=== PATIENT | male | born 1970 | race Caucasian/White ===

== ENCOUNTER 2018-07-08 04:09 | Inpatient (IN) | payer OTHER ==
[~2018-07-08] VITALS: Ht 167.6 cm; Wt 88.9 kg
[~2018-07-08 04:09] MED LIST: LISI10TA2 PO; OMEP40CA3 PO
[2018-07-08 06:30] VITALS: BP 140/90; PULSE 59; RESP 18
[2018-07-08 06:34] VITALS: Ht 167.6 cm; Wt 88.9 kg
[2018-07-08] MEDS ORDERED: LOSA25TA12 PO (07:00)
[2018-07-08] MEDS ORDERED: OMEG-135 PO (07:00)
[2018-07-08] MEDS ORDERED: ATOR10TA65 PO (07:00)
[2018-07-08] MEDS ORDERED: ASPI-903 PO (07:00)
[2018-07-08] MEDS ORDERED: PANT40TA4 PO (07:00)
[2018-07-08] MEDS ORDERED: ONDANSETRON 4 MG INJ IV PRN (07:30)
[2018-07-08] MEDS ORDERED: morphine 2 MG INJ IV PRN (07:30)
[2018-07-08] MEDS ORDERED: PANTOPRAZOLE 40 MG INJ IV SCH (07:30)
[2018-07-08 07:38] VITALS: BP 129/77; PULSE 78; RESP 18
[2018-07-08] MEDS: DEXTROSE 5%-0.45% NACL 1,000 ML IV SCH ×2 (07:57→18:51)
[2018-07-08] MEDS: CEFTRIAXONE 1 GM/50 ML (PMX) 50 ML IVPB SCH (08:10)
[2018-07-08] MEDS: FAMOTIDINE 20 MG INJ IV SCH ×2 (08:12→21:39)
[2018-07-08 11:11] VITALS: BP 131/82; PULSE 61; RESP 18
--- NOTE | 2018-07-08 12:54 | HP ---
Date/Time of Note Date/Time of Note DATE: 07/08/18 TIME: 12:29 Assessment/Plan VTE Prophylaxis SCD applied (from Nsg): Yes Pharmacological prophylaxis: NA/contraindicated Pharm contraindication: low risk/ambulating, surgical contra Lines/Catheters IV Catheter Type (from Nrsg): Peripheral IV Assessment/Plan Hospital Course 1. SIRS, WBC 12 yesterday per his [place] record. Patient received 1 dose of Zosyn. 2. Cholecystitis vs cholelithiasis 3. Abdominal pain 2/2 cholelithiasis with gallbladder wall thickening. Per US abdomen in [facility]: cholelithiasis with gallbladder wall thickening, distended common bile duct measures 1.3cm , no kidney stones or hydronephrosis 4. Hypertension 5. Hyperlipidemia 6. Obesity 7. patient is a former smoker Assessment/Plan -N.p.o. -c/ Rocephin - IV fluids -GI prophylaxis famotidine -GI consult Dr. Arriaga, communicated -Surgical consult Dr. Alamo, aware Result Diagram: 07/08/18 0825 07/08/18 1026 Results 24hrs Laboratory Tests Test 07/08/18 08:25 07/08/18 08:28 07/08/18 10:26 White Blood Count 9.3 Red Blood Count 4.72 Hemoglobin 14.7 Hematocrit 42.2 Mean Corpuscular Volume 89.4 Mean Corpuscular Hemoglobin 31.1 Mean Corpuscular Hemoglobin Concent 34.8 Red Cell Distribution Width 12.1 Platelet Count 144 Mean Platelet Volume 11.5 H Immature Granulocytes % 0.300 Neutrophils % 68.7 Lymphocytes % 20.9 Monocytes % 8.3 Eosinophils % 1.3 Basophils % 0.5 Nucleated Red Blood Cells % 0.0 Immature Granulocytes # 0.030 Neutrophils # 6.4 Lymphocytes # 2.0 Monocytes # 0.8 Eosinophils # 0.1 Basophils # 0.1 Nucleated Red Blood Cells # 0.0 Sodium Level 143 143 Potassium Level 3.7 3.8 Chloride Level 104 102 Carbon Dioxide Level 29 29 Anion Gap 10 12 Blood Urea Nitrogen 11 11 Creatinine 0.86 0.84 Est Glomerular Filtrat Rate mL/min > 60 > 60 Glucose Level 102 97 Calcium Level 9.4 9.2 Total Bilirubin 0.4 0.4 Direct Bilirubin 0.00 0.00 Indirect Bilirubin 0.4 0.4 Aspartate Amino Transf (AST/SGOT) 23 22 Alanine Aminotransferase (ALT/SGPT) 31 25 Alkaline Phosphatase 64 61 Total Protein 6.8 6.9 Albumin 4.1 4.2 Globulin 2.70 2.70 Albumin/Globulin Ratio 1.51 1.55 HPI/ROS Admit Date/Time Admit Date/Time Jul 08, 2018 at 05:54 Hx of Present Illness This 47-year-old patient with a history of hypertension and hyperlipidemia presented to the emergency department of [facility] on July 07, 2018 9 pm. He complained on abdominal pain for 1 day, he complained that his abdomen felt swollen and bloated. The [facility] record was reviewed and it is indicated that patient tried home remedies such as drinking carbonated beverage and taking Tums with little or no relief. Patient reported 2 episodes of vomiting that contained tinge of bright red blood after feqw episodes of vomiting. patient denies diarrhea, fever, cough. Patient was taking aspirin 81 mg p.o. daily as a home medication. Vital signs in [facility] are reviewed, they are mostly normal except hypertension 180/96. CBC reveals WBC 12 point RBC 5.0 hemoglobin 16 hematocrit 45 platelet 158, BMP revealed sodium 137 potassium 4.4 chloride 101 carbon dioxide 29 BUN 16 creatinine 1.06 glucose 1:15 AM patient hemoglobin A1c is 5.4 calcium 9.0 on alkaline phosphatase 19 ALT 36 AST 21 INR 1.1 PT 13. Abdominal ultrasound showed cholelithiasis with gallbladder wall thickening, distended common bile duct measures 1.3, no kidney stones or hydronephrosis, UA was not done. Per Insurance purposes patient was transferred to [facility] today ROS Gastrointestinal: pain (RUQ) Genitourinary: no complaints Musculoskeletal: no complaints PMH/Family/Social Past Medical History Medical History: high cholesterol, hypertension Medications Current Medications Dextrose/Sodium Chloride 1,000 ml @ 60 mls/hr [id number] IV Last administered on 07/08/18at 07:57; Admin Dose 60 MLS/HR; Start 07/08/18 at 07:30 Ondansetron HCl (Zofran Inj) 4 mg Q6H PRN IV NAUSEA AND/OR VOMITING; Start 07/08/18 at 07:30 Morphine Sulfate (morphine) 2 mg Q4H PRN IV PAIN; Start 07/08/18 at 07:30 Ceftriaxone Sodium 50 ml @ 100 mls/hr Q24H IVPB Last administered on 07/08/18at 08:10; Admin Dose 100 MLS/HR; Start 07/08/18 at 08:00 Famotidine (Pepcid Iv) 20 mg BID IV Last administered on 07/08/18at 08:12; Admin Dose 20 MG; Start 07/08/18 at 09:00 Coded Allergies: No Known Drug Allergies (Verified Allergy, Unknown, 09/29/12) Past Surgical History Past Surgical Hx: no surgical history Social History Alcohol Use: none Smoking Status: Former smoker Drug Use: none Exam/Review of Systems Vital Signs Vitals Vital Signs Date Temp Pulse Resp B/P (MAP) Pulse Ox O2 O2 Flow FiO2 Time Delivery Rate 07/08/18 98.9 61 18 131/82 96 11:11 (98) 07/08/18 Room Air 06:30 Exam Constitutional: alert, oriented Respiratory: clear to auscultation Cardiovascular: regular rate and rhythm Gastrointestinal: soft, other (Merphy sign is negative) MERRILL WING Jul 08, 2018 12:39
[2018-07-08] MEDS ORDERED: hydrALAzine 20 MG INJ IV PRN (13:30)
--- NOTE | 2018-07-08 14:32 | CONS ---
Assessment/Plan Assessment/Plan Assessment/Plan (Daily) 1. Cholelithiasis with possible cholecystitis and concern for choledocholithiasis: -MRCP -GI consult for possible choledocholithiasis -Antibiotics 2. Abdominal pain: DDX: #1 versus gastroenteritis versus other; Much improved -Pain management as needed 3. Leukocytosis: -As above -Trend 4. Obesity BMI: 32 -diet and exercise optimization -encourage weight loss 5. Hyperlipidemia: -Highly encourage weight loss -Medical management 6. Hypertension: -Medical management 7. Esophagitis and gastritis per pathology status post endoscopy 2012 -PPI -GI follow-up Thank you. Patient seen and examined in collaboration with Dr. Gaston Alamo. Consultation Date/Type/Reason Admit Date/Time Jul 08, 2018 at 05:54 Date of Consultation: Jul 08, 2018 Type of Consult Surgical Reason for Consultation Cholelithiasis Requesting Provider: MERRILL WING Date/Time of Note DATE: 07/08/18 TIME: 14:22 Hx of Present Illness Anthony Machado is a 47-year-old man with past medical history of hypertension and hyperlipidemia who presented to the ED with a 1 day history of abdominal bloating and pain. Reportedly, patient began experiencing abdominal pain after having Mediterranean food. No alleviating factors identified. Therapies attempted include [id number] medications as well as carbonated beverages and dieters tea without relief. Associated symptoms include nausea with vomiting blood-tinged emesis. He denies fevers, chills, congested cough, chest pain, palpitation, diarrhea, change in bowel or bladder habits, change in skin or scleral coloring. Abdominal imaging showed cholelithiasis with gallbladder wall thickening and a dilated common bile duct of 1.3 cm. Laboratory findings significant for mildly elevated white blood cell count of 12.2 General surgery was asked to evaluate. 12 point review of systems was performed and is negative except for as stated in HPI. Past Medical History As above Medical History: high cholesterol, hypertension Home Meds Reported Medications [place]-3 Fatty Acids/Fish Oil (Fish Oil 1,000 mg Capsule) 1 Each Capsule, 1 EACH PO DAILY, CAP 07/08/18 Atorvastatin Calcium (Atorvastatin Calcium) 10 Mg Tablet, 10 MG PO QHS, #30 TAB 07/08/18 Aspirin* (Aspirin* Chew) 81 Mg Tab.chew, 81 MG PO DAILY, TAB.CHEW 07/08/18 Losartan Potassium* (Losartan Potassium*) 25 Mg Tablet, 25 MG PO DAILY, TAB 07/08/18 Pantoprazole* (Pantoprazole*) 40 Mg Tablet.dr, 40 MG PO DAILY, TAB 07/08/18 Medications Current Medications Dextrose/Sodium Chloride 1,000 ml @ 60 mls/hr [id number] IV Last administered on 07/08/18at 07:57; Admin Dose 60 MLS/HR; Start 07/08/18 at 07:30 Ondansetron HCl (Zofran Inj) 4 mg Q6H PRN IV NAUSEA AND/OR VOMITING; Start 07/08/18 at 07:30 Morphine Sulfate (morphine) 2 mg Q4H PRN IV PAIN; Start 07/08/18 at 07:30 Ceftriaxone Sodium 50 ml @ 100 mls/hr Q24H IVPB Last administered on 07/08/18at 08:10; Admin Dose 100 MLS/HR; Start 07/08/18 at 08:00 Famotidine (Pepcid Iv) 20 mg BID IV Last administered on 07/08/18at 08:12; Admin Dose 20 MG; Start 07/08/18 at 09:00 Hydralazine HCl (Apresoline) 10 mg Q6H PRN IV SBOP ABOVE 140; Start 07/08/18 at 13:30 Allergies: Coded Allergies: No Known Drug Allergies (Verified Allergy, Unknown, 09/29/12) Past Surgical History Past Surgical Hx: no surgical history Family History Significant Family History: no pertinent family hx Social History Alcohol Use: none Smoking Status: Former smoker Drug Use: none Exam/Review of Systems Exam Vitals Vital Signs Date Temp Pulse Resp B/P (MAP) Pulse Ox O2 O2 Flow FiO2 Time Delivery Rate 07/08/18 98.9 61 18 131/82 96 11:11 (98) 07/08/18 Room Air 06:30 Constitutional: alert, oriented, well developed Psych: nl mood/affect; No anxiety Head: normocephalic, atraumatic Eyes: nl conjunctiva, EOMI, nl lids, nl sclera ENMT: nl external ears & nose, nl lips & teeth, mucosa pink and moist Neck: supple, non-tender; No jvd Respiratory: normal air movement; No congested cough Cardiovascular: regular rate and rhythm, nl pulses Gastrointestinal: soft, tender (Minimal right upper quadrant; negative San's by palpation) Musculoskeletal: nl gait and stance Extremities: normal pulses Neurological: nl mental status, nl speech, nl strength Skin: No rash or lesions Lymph: nl lymph nodes Results Result Diagram: 07/08/18 0825 07/08/18 1026 Results 24hrs Laboratory Tests Test 07/08/18 08:25 07/08/18 08:28 07/08/18 10:26 White Blood Count 9.3 Red Blood Count 4.72 Hemoglobin 14.7 Hematocrit 42.2 Mean Corpuscular Volume 89.4 Mean Corpuscular Hemoglobin 31.1 Mean Corpuscular Hemoglobin Concent 34.8 Red Cell Distribution Width 12.1 Platelet Count 144 Mean Platelet Volume 11.5 H Immature Granulocytes % 0.300 Neutrophils % 68.7 Lymphocytes % 20.9 Monocytes % 8.3 Eosinophils % 1.3 Basophils % 0.5 Nucleated Red Blood Cells % 0.0 Immature Granulocytes # 0.030 Neutrophils # 6.4 Lymphocytes # 2.0 Monocytes # 0.8 Eosinophils # 0.1 Basophils # 0.1 Nucleated Red Blood Cells # 0.0 Sodium Level 143 143 Potassium Level 3.7 3.8 Chloride Level 104 102 Carbon Dioxide Level 29 29 Anion Gap 10 12 Blood Urea Nitrogen 11 11 Creatinine 0.86 0.84 Est Glomerular Filtrat Rate mL/min > 60 > 60 Glucose Level 102 97 Calcium Level 9.4 9.2 Total Bilirubin 0.4 0.4 Direct Bilirubin 0.00 0.00 Indirect Bilirubin 0.4 0.4 Aspartate Amino Transf (AST/SGOT) 23 22 Alanine Aminotransferase (ALT/SGPT) 31 25 Alkaline Phosphatase 64 61 Total Protein 6.8 6.9 Albumin 4.1 4.2 Globulin 2.70 2.70 Albumin/Globulin Ratio 1.51 1.55 Medications Medication Current Medications Dextrose/Sodium Chloride 1,000 ml @ 60 mls/hr [id number] IV Last administered on 07/08/18at 07:57; Admin Dose 60 MLS/HR; Start 07/08/18 at 07:30 Ondansetron HCl (Zofran Inj) 4 mg Q6H PRN IV NAUSEA AND/OR VOMITING; Start 07/08/18 at 07:30 Morphine Sulfate (morphine) 2 mg Q4H PRN IV PAIN; Start 07/08/18 at 07:30 Ceftriaxone Sodium 50 ml @ 100 mls/hr Q24H IVPB Last administered on 07/08/18at 08:10; Admin Dose 100 MLS/HR; Start 07/08/18 at 08:00 Famotidine (Pepcid Iv) 20 mg BID IV Last administered on 07/08/18at 08:12; Admin Dose 20 MG; Start 07/08/18 at 09:00 Hydralazine HCl (Apresoline) 10 mg Q6H PRN IV SBOP ABOVE 140; Start 07/08/18 at 13:30 LEIGHA BATES NP Jul 08, 2018 14:32
--- NOTE | 2018-07-08 14:53 | CONS ---
DATE OF ADMISSION: 07/08/2018 DATE OF CONSULTATION: 07/08/2018 HISTORY OF PRESENT ILLNESS: A 47-year-old male went to the emergency room at [facility] for abdominal pain confined to the epigastric area, right upper quadrant associated with nausea and vomi ting and this happened after a heavy meal. No GI bleeding, no fever, no chills. One of the vomitus was a coffee-ground colored material. No chest pain, no shortness of breath. Now, the pain is compl etely gone away. He was seen in the Emergency Room at [facility]. Ultrasound was done. Bi le duct was dilated to 1.3 cm and there were stones in the gallbladder. So, patient was admitted to this hospital for further management. PAST MEDICAL HISTORY: Hypertension and hyperlipidemia. SOCIAL HISTORY: He is a former smoker, does not drink. No recreational drug. PHYSICAL EXAMINATION: GENERAL: Overweight, not in distress. VITAL SIGNS: Stable. HEENT: Unremarkable. NECK: Supple, no thyromegaly, no lymphadenopathy. CARDIOVASCULAR: No murmur, gallop or click. LUNGS: Clear. ABDOMEN: Benign. EXTREMITIES: No edema. CENTRAL NERVOUS SYSTEM: Grossly within normal limits, normal. IMPRESSION: 1. Gallstone, biliary, colicky. 2. Hypertension. 3. Obesity. 4. Dyslipidemia. 5. Dilated biliary system. PLAN: At this point is to get MRCP done. If there is a stone in the bile duct, then we will proceed with ERCP and removal of the stone. In the interim, continue present care. Monitor LFTs and WBC co unt closely. Dictated By: WILLIS ELKINS/TAYLOR Conf#: [id number] DID#: [id number] CC: FLOR GIPSON MD; GRAY GODFREY;*EndCC*
[2018-07-08 15:52] VITALS: BP 134/81; PULSE 54; RESP 18
[2018-07-08 18:56] VITALS: BP 134/79; PULSE 57; RESP 16
[2018-07-08 19:20] VITALS: BP 139/87; PULSE 54; RESP 16
[2018-07-08] MEDS: metroNIDAZOLE 500 MG/NS (PMX) 100 ML IVPB SCH (21:39)
[2018-07-09] VITALS: BP 127/66; PULSE 57; RESP 16
[2018-07-09] MEDS: DEXTROSE 5%-0.45% NACL 1,000 ML IV SCH ×2 (00:42→16:50)
[2018-07-09] MEDS: metroNIDAZOLE 500 MG/NS (PMX) 100 ML IVPB SCH ×3 (05:17→21:23)
[2018-07-09 07:57] VITALS: BP 128/79; PULSE 53; RESP 18
[2018-07-09] MEDS: FAMOTIDINE 20 MG INJ IV SCH ×2 (08:48→20:18)
[2018-07-09] MEDS: CEFTRIAXONE 1 GM/50 ML (PMX) 50 ML IVPB SCH (08:48)
--- NOTE | 2018-07-09 13:21 | CONS ---
Assessment/Plan Assessment/Plan Assessment/Plan (Daily) IMPRESSION: 1. Gallstone, acute cholecystitis 2. Hypertension. 3. Obesity. 4. Dyslipidemia. 5. Dilated biliary system. MRCP was normal no dilatation of the biliary system no filling defect Plan Continue antibiotic Patient needs surgery Consultation Date/Type/Reason Admit Date/Time Jul 08, 2018 at 05:54 Initial Consult Date 07/08/18 Requesting Provider: MERRILL WING Date/Time of Note DATE: 07/09/18 TIME: 13:20 24 HR Interval Summary Constitutional: no complaints, improved Exam/Review of Systems Exam Vitals Vital Signs Date Temp Pulse Resp B/P (MAP) Pulse Ox O2 O2 Flow FiO2 Time Delivery Rate 07/09/18 98.0 53 18 128/79 98 Room Air 07:57 (95) Intake and Output 07/08/18 07/08/18 07/09/18 1515:00 23:00 07:00 IntakeIntake Total 60 ml 1540 ml BalanceBalance 60 ml 1540 ml Constitutional: alert, oriented, well developed Psych: no complaints, nl mood/affect Head: normocephalic, atraumatic Eyes: nl conjunctiva, EOMI, nl lids, nl sclera, PERRL ENMT: nl external ears & nose, nl lips & teeth, nl nasal mucosa & septum Neck: supple, non-tender Respiratory: clear to auscultation, normal air movement Cardiovascular: regular rate and rhythm, nl pulses Gastrointestinal: soft, nl liver, spleen, non-tender Musculoskeletal: nl extremities to inspection, nl gait and stance Extremities: normal pulses Neurological: [employer] II-XII intact, nl mental status, nl speech, nl strength Skin: nl turgor; No rash or lesions Lymph: nl lymph nodes Results Result Diagram: 07/09/182 07/09/182 Results 24hrs Laboratory Tests Test 07/09/18 04:42 White Blood Count 5.2 # Red Blood Count 4.89 Hemoglobin 15.2 Hematocrit 44.0 Mean Corpuscular Volume 90.0 Mean Corpuscular Hemoglobin 31.1 Mean Corpuscular Hemoglobin Concent 34.5 Red Cell Distribution Width 12.1 Platelet Count 143 Mean Platelet Volume 11.8 H Immature Granulocytes % 0.200 Neutrophils % 49.1 Lymphocytes % 36.7 Monocytes % 9.4 Eosinophils % 3.6 Basophils % 1.0 Nucleated Red Blood Cells % 0.0 Immature Granulocytes # 0.010 Neutrophils # 2.6 Lymphocytes # 1.9 Monocytes # 0.5 Eosinophils # 0.2 Basophils # 0.1 Nucleated Red Blood Cells # 0.0 Sodium Level 141 Potassium Level 3.9 Chloride Level 102 Carbon Dioxide Level 28 Anion Gap 11 Blood Urea Nitrogen 12 Creatinine 1.06 Est Glomerular Filtrat Rate mL/min > 60 Glucose Level 107 Calcium Level 9.0 Total Bilirubin 0.5 Direct Bilirubin 0.00 Indirect Bilirubin 0.5 Aspartate Amino Transf (AST/SGOT) 26 Alanine Aminotransferase (ALT/SGPT) 27 Alkaline Phosphatase 64 Total Protein 6.9 Albumin 4.1 Globulin 2.80 Albumin/Globulin Ratio 1.46 Amylase Level 37 Medications Medication Current Medications Dextrose/Sodium Chloride 1,000 ml @ 60 mls/hr [id number] IV Last administered on 07/09/18at 00:42; Admin Dose 60 MLS/HR; Start 07/08/18 at 07:30 Ondansetron HCl (Zofran Inj) 4 mg Q6H PRN IV NAUSEA AND/OR VOMITING; Start 07/08/18 at 07:30 Morphine Sulfate (morphine) 2 mg Q4H PRN IV PAIN; Start 07/08/18 at 07:30 Ceftriaxone Sodium 50 ml @ 100 mls/hr Q24H IVPB Last administered on 07/09/18 08:48; Admin Dose 100 MLS/HR; Start 07/08/18 at 08:00 Famotidine (Pepcid Iv) 20 mg BID IV Last administered on 07/09/18at 08:48; Admin Dose 20 MG; Start 07/08/18 at 09:00 Hydralazine HCl (Apresoline) 10 mg Q6H PRN IV SBOP ABOVE 140; Start 07/08/18 at 13:30 Metronidazole 100 ml @ 100 mls/hr Q8 IVPB Last administered on 07/09/18at 05:17; Admin Dose 100 MLS/HR; Start 07/08/18 at 22:00 WILLIS MARIE MD Jul 09, 2018 13:21
[2018-07-09 14:00] VITALS: BP 137/86; PULSE 57; RESP 18
--- NOTE | 2018-07-09 15:21 | PN ---
MERRILL WING 07/09/18 1520: Date/Time of Note Date/Time of Note DATE: 07/09/18 TIME: 15:16 Assessment/Plan VTE Prophylaxis Risk score (from [facility])>0 risk: 3 SCD applied (from [facility]): No SCD contraindicated: low risk/ambulating Pharmacological prophylaxis: NA/contraindicated Pharm contraindication: low risk/ambulating Lines/Catheters IV Catheter Type (from [facility]): Peripheral IV Urinary Cath still in place: No Assessment/Plan Hospital Course 1. SIRS, WBC 12 yesterday per his [place] record. 2. Acalculous cholecystitis 3. Abdominal pain 2/2 cholecystitis with gallbladder wall thickening. Per US abdomen in [facility]: cholelithiasis with gallbladder wall thickening, distended common bile duct measures 1.3 cm , no kidney stones or hydronephrosis 4. Hypertension 5. Hyperlipidemia 6. Obesity 7. patient is a former smoker Assessment/Plan -N.p.o. -need cholecystectomy -MRCP neg -c/ Rocephin/metronidazole. - c/ w IV fluids -GI prophylaxis famotidine -GI consult Dr. Arriaga, communicated -Surgical consult Dr. Alamo, aware Result Diagram: 07/09/18 0442 07/09/18 0442 Results 24hrs Laboratory Tests Test 07/09/18 04:42 White Blood Count 5.2 # Red Blood Count 4.89 Hemoglobin 15.2 Hematocrit 44.0 Mean Corpuscular Volume 90.0 Mean Corpuscular Hemoglobin 31.1 Mean Corpuscular Hemoglobin Concent 34.5 Red Cell Distribution Width 12.1 Platelet Count 143 Mean Platelet Volume 11.8 H Immature Granulocytes % 0.200 Neutrophils % 49.1 Lymphocytes % 36.7 Monocytes % 9.4 Eosinophils % 3.6 Basophils % 1.0 Nucleated Red Blood Cells % 0.0 Immature Granulocytes # 0.010 Neutrophils # 2.6 Lymphocytes # 1.9 Monocytes # 0.5 Eosinophils # 0.2 Basophils # 0.1 Nucleated Red Blood Cells # 0.0 Sodium Level 141 Potassium Level 3.9 Chloride Level 102 Carbon Dioxide Level 28 Anion Gap 11 Blood Urea Nitrogen 12 Creatinine 1.06 Est Glomerular Filtrat Rate mL/min > 60 Glucose Level 107 Calcium Level 9.0 Total Bilirubin 0.5 Direct Bilirubin 0.00 Indirect Bilirubin 0.5 Aspartate Amino Transf (AST/SGOT) 26 Alanine Aminotransferase (ALT/SGPT) 27 Alkaline Phosphatase 64 Total Protein 6.9 Albumin 4.1 Globulin 2.80 Albumin/Globulin Ratio 1.46 Amylase Level 37 Subjective 24 Hr Interval Summary Gastrointestinal: pain; No no complaints, No blood, No constipation, No decreased appetite, No diarrhea, No flatus, No nausea, No passing stool, No vomiting, No other Exam/Review of Systems Exam Vitals Vital Signs Date Temp Pulse Resp B/P (MAP) Pulse Ox O2 O2 Flow FiO2 Time Delivery Rate 07/09/18 98.0 53 18 128/79 98 Room Air 07:57 (95) Intake and Output 07/08/18 07/08/18 07/09/18 1515:00 23:00 07:00 IntakeIntake Total 60 ml 1540 ml BalanceBalance 60 ml 1540 ml Constitutional: alert, oriented Respiratory: clear to auscultation Cardiovascular: regular rate and rhythm Gastrointestinal: soft Results Result Diagram: 07/09/18 0442 07/09/18 0442 Results 24hrs Laboratory Tests Test 07/09/18 04:42 White Blood Count 5.2 # Red Blood Count 4.89 Hemoglobin 15.2 Hematocrit 44.0 Mean Corpuscular Volume 90.0 Mean Corpuscular Hemoglobin 31.1 Mean Corpuscular Hemoglobin Concent 34.5 Red Cell Distribution Width 12.1 Platelet Count 143 Mean Platelet Volume 11.8 H Immature Granulocytes % 0.200 Neutrophils % 49.1 Lymphocytes % 36.7 Monocytes % 9.4 Eosinophils % 3.6 Basophils % 1.0 Nucleated Red Blood Cells % 0.0 Immature Granulocytes # 0.010 Neutrophils # 2.6 Lymphocytes # 1.9 Monocytes # 0.5 Eosinophils # 0.2 Basophils # 0.1 Nucleated Red Blood Cells # 0.0 Sodium Level 141 Potassium Level 3.9 Chloride Level 102 Carbon Dioxide Level 28 Anion Gap 11 Blood Urea Nitrogen 12 Creatinine 1.06 Est Glomerular Filtrat Rate mL/min > 60 Glucose Level 107 Calcium Level 9.0 Total Bilirubin 0.5 Direct Bilirubin 0.00 Indirect Bilirubin 0.5 Aspartate Amino Transf (AST/SGOT) 26 Alanine Aminotransferase (ALT/SGPT) 27 Alkaline Phosphatase 64 Total Protein 6.9 Albumin 4.1 Globulin 2.80 Albumin/Globulin Ratio 1.46 Amylase Level 37 Medications Medication Current Medications Dextrose/Sodium Chloride 1,000 ml @ 60 mls/hr [id number] IV Last administered on 07/09/18at 00:42; Admin Dose 60 MLS/HR; Start 07/08/18 at 07:30 Ondansetron HCl (Zofran Inj) 4 mg Q6H PRN IV NAUSEA AND/OR VOMITING; Start 07/08/18 at 07:30 Morphine Sulfate (morphine) 2 mg Q4H PRN IV PAIN; Start 07/08/18 at 07:30 Ceftriaxone Sodium 50 ml @ 100 mls/hr Q24H IVPB Last administered on 07/09/18at 08:48; Admin Dose 100 MLS/HR; Start 07/08/18 at 08:00 Famotidine (Pepcid Iv) 20 mg BID IV Last administered on 07/09/18at 08:48; Admin Dose 20 MG; Start 07/08/18 at 09:00 Hydralazine HCl (Apresoline) 10 mg Q6H PRN IV SBOP ABOVE 140; Start 07/08/18 at 13:30 Metronidazole 100 ml @ 100 mls/hr Q8 IVPB Last administered on 07/09/18at 14:59; Admin Dose 100 MLS/HR; Start 07/08/18 at 22:00 GRAY GODFREY MD 07/09/18 1652: Assessment/Plan Assessment/Plan Assessment/Plan seen and exmained asymtomatic advance diet Result Diagram: 07/09/18 0442 07/09/18 0442 MERRILL WING Jul 09, 2018 15:20 GRAY GODFREY MD Jul 09, 2018 16:52
--- NOTE | 2018-07-09 20:10 | PN ---
Date/Time of Note Date/Time of Note DATE: 07/09/18 TIME: 20:01 Assessment/Plan Lines/Catheters IV Catheter Type (from [facility]): Peripheral IV Aaron in Place (from [facility]): No Assessment/Plan Chief Complaint/Hosp Course 1. Cholelithiasis with possible cholecystitis and concern for choledocholithiasis:MRCP noted without choledocholithiasis; patient refusing surgical intervention at this time -May be discharged per medical team with oral antibiotics for 4 more days. 2. Abdominal pain: DDX: #1 versus gastroenteritis versus other; resolved -Pain management as needed 3. Leukocytosis: Resolved 4. Obesity BMI: 32 -diet and exercise optimization -encourage weight loss 5. Hyperlipidemia: -Highly encourage weight loss -Medical management 6. Hypertension: -Medical management 7. Esophagitis and gastritis per pathology status post endoscopy 2012 -PPI -GI follow-up Thank you. Patient seen and examined in collaboration with Dr. Gaston Alamo. Subjective 24 Hr Interval Summary Feels well. Tolerating diet without abdominal pain. Refusing surgery at this point. No fevers, chills, sob, congested cough, cp, palpitations, sheikh, d izziness, nausea, vomiting, diarrhea, dysuria. Exam/Review of Systems Vital Signs Vitals Vital Signs Date Temp Pulse Resp B/P (MAP) Pulse Ox O2 O2 Flow FiO2 Time Delivery Rate 07/09/18 98.6 57 18 137/86 99 Room Air 14:00 (103) Intake and Output 07/08/18 07/08/18 07/09/18 1515:00 23:00 07:00 IntakeIntake Total 60 ml 1540 ml BalanceBalance 60 ml 1540 ml Exam Free Text/Dictation Constitutional: alert, oriented, well developed Psych: nl mood/affect; No anxiety Head: normocephalic, atraumatic Eyes: nl conjunctiva, EOMI, nl lids, nl sclera ENMT: nl external ears & nose, nl lips & teeth, mucosa pink and moist Neck: supple, non-tender; No jvd Respiratory: normal air movement; No congested cough Cardiovascular: regular rate and rhythm, nl pulses Gastrointestinal: soft, non-tender Musculoskeletal: nl gait and stance Extremities: normal pulses Neurological: nl mental status, nl speech, nl strength Skin: No rash or lesions Lymph: nl lymph nodes Results Result Diagram: 07/09/18 0442 07/09/18 0442 LEIGHA BATES NP Jul 09, 2018 20:10
[2018-07-09 20:19] VITALS: BP 130/80; PULSE 58; RESP 18
[2018-07-10 02:13] VITALS: BP 138/72; PULSE 55; RESP 20
[2018-07-10] MEDS: metroNIDAZOLE 500 MG/NS (PMX) 100 ML IVPB SCH (05:08)
[2018-07-10 07:30] VITALS: BP 131/80; PULSE 54; RESP 18
[2018-07-10] MEDS ORDERED: FAMOTIDINE 20 MG TAB PO SCH (09:00)
[2018-07-10] MEDS: CEFTRIAXONE 1 GM/50 ML (PMX) 50 ML IVPB SCH (09:49)
--- NOTE | 2018-07-10 11:54 | PDOCDIS ---
Discharge Instructions CONDITION [id number] Patient Condition: [id number] Stable HOME CARE INSTRUCTIONS: [id number] Diet Instructions: [id number] Low Fat /Cholesterol ACTIVITY: [id number] Activity Restrictions: [id number] Slowly Increase Activity Rest between Activity Avoid heavy lifting FOLLOW UP/APPOINTMENTS Follow-up Plan PCP 1 week MERRILL WING Jul 10, 2018 11:54
[2018-07-10] MEDS ORDERED: CIPR500T4 PO (11:56)
--- NOTE | 2018-07-10 13:13 | PN ---
Date/Time of Note Date/Time of Note DATE: 07/10/18 TIME: 13:12 Assessment/Plan Lines/Catheters IV Catheter Type (from [facility]): Peripheral IV Aaron in Place (from [facility]): No Assessment/Plan Chief Complaint/Hosp Course 1. Cholelithiasis with possible cholecystitis and concern for choledocholithiasis:MRCP noted without choledocholithiasis; patient refusing surgical intervention at this time -May be discharged per medical team with oral antibiotics for 3 more days. 2. Abdominal pain: DDX: #1 versus gastroenteritis versus other; resolved -Pain management as needed 3. Leukocytosis: Resolved 4. Obesity BMI: 32 -diet and exercise optimization -encourage weight loss 5. Hyperlipidemia: -Highly encourage weight loss -Medical management 6. Hypertension: -Medical management 7. Esophagitis and gastritis per pathology status post endoscopy 2012 -PPI -GI follow-up Thank you. Patient seen and examined in collaboration with Dr. Gaston Alamo. Subjective 24 Hr Interval Summary Feels well. No abdominal pain. No fevers, chills, sob, congested cough, cp, palpitations, sheikh, dizziness, nausea, vomiting, diarrhea, dysuria. Exam/Review of Systems Vital Signs Vitals Vital Signs Date Temp Pulse Resp B/P (MAP) Pulse Ox O2 O2 Flow FiO2 Time Delivery Rate 07/10/18 97.6 54 18 131/80 97 Room Air 07:30 (97) Intake and Output 07/09/18 07/09/18 07/10/18 1515:00 23:00 07:00 IntakeIntake Total 50 ml 1400 ml 100 ml OutputOutput Total 250 ml BalanceBalance 50 ml 1150 ml 100 ml Exam Free Text/Dictation Constitutional: alert, oriented, well developed Psych: nl mood/affect; No anxiety Head: normocephalic, atraumatic Eyes: nl conjunctiva, EOMI, nl lids, nl sclera ENMT: nl external ears & nose, nl lips & teeth, mucosa pink and moist Neck: supple, non-tender; No jvd Respiratory: normal air movement; No congested cough Cardiovascular: regular rate and rhythm, nl pulses Gastrointestinal: soft, non-tender Musculoskeletal: nl gait and stance Extremities: normal pulses Neurological: nl mental status, nl speech, nl strength Skin: No rash or lesions Lymph: nl lymph nodes Results Result Diagram: 07/09/18 0442 07/09/18 0442 LEIGHA BATES NP Jul 10, 2018 13:13
--- NOTE | 2018-07-10 21:43 | DS ---
Date/Time of Note Date/Time of Note DATE: 07/10/18 TIME: 21:39 Discharge Summary Admission/Discharge Info Admit Date/Time Jul 08, 2018 at 05:54 Discharge Date/Time Jul 10, 2018 at 13:30 Discharge Diagnosis acute cholecystitis Patient Condition: Stable Consults Dr Arriaga, GI, dr Alamo, surgery Procedures MRCP Hospital Course This 47-year-old patient with a history of hypertension and hyperlipidemia presented to the emergency department of [facility] on July 07, 2018 9 pm. He complained on abdominal pain for 1 day, he complained that his abdomen felt swollen and bloated. The [facility] Hospital record was reviewed and it is indicated that patient tried home remedies such as drinking carbonated beverage and taking Tums with little or no relief. Patient reported 2 episodes of vomiting that contained tinge of bright red blood after feqw episodes of vomiting. patient denies diarrhea, fever, cough. Patient was taking aspirin 81 mg p.o. daily as a home medication. Vital signs in [facility] are reviewed, they are mostly normal except hypertension 180/96. CBC reveals WBC 12 point RBC 5.0 hemoglobin 16 hematocrit 45 platelet 158, BMP revealed sodium 137 potassium 4.4 chloride 101 carbon dioxide 29 BUN 16 creatinine 1.06 glucose 1:15 AM patient hemoglobin A1c is 5.4 calcium 9.0 on alkaline phosphatase 19 ALT 36 AST 21 INR 1.1 PT 13. Abdominal ultrasound showed cholelithiasis with gallbladder wall thickening, distended common bile duct measures 1.3, no kidney stones or hydronephrosis, UA was not done. Per Insurance purposes patient was transferred to [facility] today Admission ds: 1. SIRS, WBC 12 yesterday per his [facility] record. 2. Acute cholecystitis 3. Abdominal pain 2/2 cholecystitis with gallbladder wall thickening. Per US abdomen in [facility]: cholelithiasis with gallbladder wall thickening, distended common bile duct measures 1.3 cm , no kidney stones or hydronephrosis 4. Hypertension 5. Hyperlipidemia 6. Obesity 7. patient is a former smoker During hospitalization pt was seen by dr Arriaga. He recommended to get MRCP. It was done and found cholelithiasis with moderate diffuse gallbladder wall thickening, concerning for acute cholecystitis. No evidence of choledocholithiasis or biliary ductal dilatation. We monitored LFTs and WBC count closely. Pt was kept N.p.o., we gave IV Rocephin. WBC got normal. During NPO was given IV fluids. Dr Duarte followed pt closely after pain was resolved and MRCP showed no stones in biliary tree he offered pt a surgery lap.ry. Pt declined , he was sent home with a/b and PCP f/up. ds: acute cholecystitis Home Meds Active Scripts Ciprofloxacin Hcl* (Ciprofloxacin Hcl*) 500 Mg Tablet, 500 MG PO BID for 4 Days, #8 TAB Prov:MERRILL WING 07/10/18 Reported Medications [facility]-3 Fatty Acids/Fish Oil (Fish Oil 1,000 mg Capsule) 1 Each Capsule, 1 EACH PO DAILY, CAP 07/08/18 Atorvastatin Calcium (Atorvastatin Calcium) 10 Mg Tablet, 10 MG PO QHS, #30 TAB 07/08/18 Aspirin* (Aspirin* Chew) 81 Mg Tab.chew, 81 MG PO DAILY, TAB.CHEW 07/08/18 Losartan Potassium* (Losartan Potassium*) 25 Mg Tablet, 25 MG PO DAILY, TAB 07/08/18 Pantoprazole* (Pantoprazole*) 40 Mg Tablet., 40 MG PO DAILY, TAB 07/08/18 Follow-up Plan PCP 1 week Primary Care Provider Care Physician No Primary Time spent on discharge: < 30 minutes MERRILL WING Jul 10, 2018 21:43
== END 2018-07-10 13:30 | disposition home or self-care (01) | DRG 445 ==
LOC: TEL 05:54 → MS1 17:55
PROVIDERS: ADMIT Internal Medicine Nephrology; ATTEND Internal Medicine Nephrology
DX: K80.00 Calculus of gallbladder with acute cholecystitis without obstruction (principal); R65.10 Systemic inflammatory response syndrome (SIRS) of non-infectious origin without acute organ dysfunction; I10 Essential (primary) hypertension; E78.5 Hyperlipidemia, unspecified; E66.9 Obesity, unspecified; Z68.31 Body mass index [BMI] 31.0-31.9, adult; Z87.891 Personal history of nicotine dependence
CPT/HCPCS: 74181; 80053; 82150; 85025; J0696; J7042